=== PATIENT | female | born 1995 | race Caucasian/White ===

== ENCOUNTER → 2016-08-17 | Outpatient (REF) | payer OTHER | LOC: M LAB REF 16:42 | PROVIDERS: ATTEND Nurse Practitioner Women's Health | DX: Z11.3 Encounter for screening for infections with a predominantly sexual mode of transmission (principal); N39.0 Urinary tract infection, site not specified ==

== ENCOUNTER → 2016-10-12 | Outpatient (REF) | payer OTHER | LOC: M LAB REF 16:39 | PROVIDERS: ATTEND Nurse Practitioner Women's Health | DX: N39.0 Urinary tract infection, site not specified (principal) ==

== ENCOUNTER → 2016-11-02 | Outpatient (REF) | payer OTHER | LOC: M LAB REF 17:27 | PROVIDERS: ATTEND Nurse Practitioner Women's Health | DX: N39.0 Urinary tract infection, site not specified (principal) ==

== ENCOUNTER → 2016-11-23 | Outpatient (REF) | payer OTHER ==
[2016-11-23 19:16] LABS: TRIPLE PHOSPHATE CRYSTALS SMALL
== END ==
LOC: M LAB REF 17:38
PROVIDERS: ATTEND Obstetrics & Gynecology
DX: Z11.3 Encounter for screening for infections with a predominantly sexual mode of transmission (principal); N76.1 Subacute and chronic vaginitis; N39.0 Urinary tract infection, site not specified

== ENCOUNTER → 2016-12-17 | Outpatient (REF) | payer MEDICAID, OTHER | LOC: M LAB REF 15:02 | PROVIDERS: ATTEND Nurse Practitioner Women's Health | DX: N39.0 Urinary tract infection, site not specified (principal) ==

== ENCOUNTER → 2017-06-21 | Outpatient (REF) | payer OTHER ==
[2017-06-21 18:49] LABS: APPEARANCE, URINE CLEAR (CLEAR); BACTERIA, URINE AUTO 1+ (NEGATIVE); BILIRUBIN, URINE AUTO NEGATIVE (NEGATIVE); BLOOD, URINE BLOOD NEGATIVE (NEGATIVE); COLOR, URINE AMBER (YELLOW); GLUCOSE, URINE (UA) AUTO NEGATIVE (NEGATIVE); KETONE, URINE AUTO NEGATIVE (NEGATIVE); LEUKOCYTE ESTERASE, URINE AUTO NEGATIVE (NEGATIVE); MUCUS, URINE SMALL (NEGATIVE); NITRITE, URINE AUTO POSITIVE (NEGATIVE); PROTEIN, URINE AUTO NEGATIVE (NEGATIVE); RBC, URINE AUTO 1 /HPF (0-3); SPECIFIC GRAVITY URINE AUTO 1.019 (1.002-1.035); SQUAMOUS EPITHELIAL CELL UR AU 3 /HPF (0-6); WBC, URINE AUTO 2 /HPF (0-3)
== END ==
LOC: M LAB REF 16:45
DX: N39.0 Urinary tract infection, site not specified (principal)
CPT/HCPCS: 81001

== ENCOUNTER → 2018-09-12 | Outpatient (REF) | payer OTHER ==
[2018-09-12 19:29] LABS: APPEARANCE, URINE HAZY (CLEAR); BACTERIA, URINE AUTO NEGATIVE (NEGATIVE); BILIRUBIN, URINE AUTO NEGATIVE (NEGATIVE); BLOOD, URINE BLOOD NEGATIVE (NEGATIVE); COLOR, URINE YELLOW (YELLOW); GLUCOSE, URINE (UA) AUTO NEGATIVE (NEGATIVE); KETONE, URINE AUTO NEGATIVE (NEGATIVE); LEUKOCYTE ESTERASE, URINE AUTO NEGATIVE (NEGATIVE); MUCUS, URINE SMALL (NEGATIVE); NITRITE, URINE AUTO NEGATIVE (NEGATIVE); PROTEIN, URINE AUTO NEGATIVE (NEGATIVE); RBC, URINE AUTO 1 /HPF (0-3); SQUAMOUS EPITHELIAL CELL UR AU 8 /HPF (0-6); UROBILINOGEN, URINE AUTO 0.2 mg/dL (0.0-2.0); WBC, URINE AUTO 3 /HPF (0-3)
== END ==
LOC: M LAB REF 18:34
PROVIDERS: ATTEND Obstetrics & Gynecology
DX: Z11.3 Encounter for screening for infections with a predominantly sexual mode of transmission (principal); N76.1 Subacute and chronic vaginitis